=== PATIENT | male | born 1955 | race Caucasian/White ===

== ENCOUNTER 2020-03-18 10:28 | Emergency (ER) | payer OTHER | END 2020-03-18 11:19 | disposition home or self-care (01) | LOC: JVIRT 10:28 | DX: Z11.59 Encounter for screening for other viral diseases (principal) | CPT/HCPCS: C9803; G2012-GT; U0003 ==

== ENCOUNTER 2022-08-13 04:33 | Day surgery (SDC) | payer OTHER, MEDICARE ==
[2022-08-12 10:40] VITALS: BMI 30.4
[2022-08-13 09:10] VITALS: TEMP 97.6
[2022-08-13 09:44] VITALS: BP 122/66; PULSE 60; RESP 15
== END 2022-08-13 09:43 | disposition home or self-care (01) ==
LOC: JASU-ENDO 04:33
PROVIDERS: ATTEND Internal Medicine Gastroenterology
PROC: 0DBN8ZX Excision of Sigmoid Colon, Via Natural or Artificial Opening Endoscopic, Diagnostic (ICD-10-PCS; 2022-08-13)
PROC: 0DBK8ZX Excision of Ascending Colon, Via Natural or Artificial Opening Endoscopic, Diagnostic (ICD-10-PCS; principal; 2022-08-13 09:00)
DX: Z12.11 Encounter for screening for malignant neoplasm of colon (principal); K63.5 Polyp of colon; K63.3 Ulcer of intestine; K57.30 Diverticulosis of large intestine without perforation or abscess without bleeding; K62.5 Hemorrhage of anus and rectum; K52.89 Other specified noninfective gastroenteritis and colitis; Z98.0 Intestinal bypass and anastomosis status
CPT/HCPCS: 88305-TC